=== PATIENT | male | born 1945 | race Caucasian/White ===

== ENCOUNTER 2020-06-30 14:29 | Inpatient (IN) ==
[2020-06-30] MEDS ORDERED: BUDESONIDE/FORMOTEROL 80-4.5 INHALER 6.9 GM INH PRN (15:57)
[2020-06-30] MEDS ORDERED: predniSONE 10 MG TABLET PO PRN (15:57)
[2020-06-30] MEDS: oxyCODONE/ACETAMINOPHEN 5-325 MG TABLET PO PRN ×2 (16:37→23:06)
[2020-06-30 16:48] LABS: Basophils # 0.1 10*3/uL (0.0-0.2); Eosinophils # 0.2 10*3/uL (0.0-0.87); Eosinophils % 2.7 % (0.00-10.9); Hematocrit 29.5 VOL% (42.0-52.0); Hemoglobin 8.9 GM/DL (14.0-18.0); Immature Granulocytes % 0.5 %; Immature Granulocytes Absolute 0.03 #; Lymphocytes # 0.9 10*3/uL (1.4-4.0); Lymphocytes % 15.1 % (21.2-54.2); Mean Corpuscular HGB Conc 30.2 GM/DL (32-36); Mean Platelet Volume 9.5 FL (9.6-12.0); Monocytes % 10.4 % (1.7-12.7); Neutrophils % 70.3 % (38.7-73.9); Platelet Count 187 T/CUMM (130-400); Red Blood Count 3.01 MC/CUMM (3.8-5.5); Red Cell Distribution Width 15.4 % (9.3-17.3)
[2020-06-30 17:09] LABS: Alanine Aminotransferase 87 U/L (16-61); Albumin 2.8 G/DL (3.4-5.0); Alkaline Phosphatase 90 U/L (45-117); Aspartate Amino Transferase 34 U/L (0-37); Bilirubin,Total < 0.39 MG/DL (0.2-1.0); Blood Urea Nitrogen 10 MG/DL (7-18); Calcium 8.6 MG/DL (8.5-10.1); Estimated Glom Filtration Rate 71 ML/MIN; Glucose 89 MG/DL (74-106); Osmolality,Calculated 272.7 MOS/KG (273-304); Total Protein 6.2 G/DL (6.4-8.3)
[2020-06-30 17:25] LABS: PT Patient Result 10.9 SECS (9.8-11.9)
[2020-06-30] MEDS: HYDROmorphone 2 MG/1 ML VIAL IV PRN (20:52)
[2020-06-30] MEDS: ROSUVASTATIN 20 MG TABLET PO SCH (20:52)
[2020-06-30] MEDS: cilostazoL 100 MG TABLET PO SCH (20:52)
[2020-06-30] MEDS: LEFLUNOMIDE 10 MG TABLET PO SCH (20:52)
[2020-06-30] MEDS: METOPROLOL SUCCINATE XL 25 MG TABLET PO SCH (20:52)
[2020-06-30] MEDS: PIPERACILLIN/TAZOBACTAM 3,375 MG in SODIUM CHLORIDE 0.9% 100 ML IV SCH (20:53)
[2020-07-01] MEDS: HYDROmorphone 2 MG/1 ML VIAL IV PRN ×8 (01:05→22:52)
[2020-07-01] MEDS: oxyCODONE/ACETAMINOPHEN 5-325 MG TABLET PO PRN ×3 (04:02→20:05)
[2020-07-01] MEDS: PIPERACILLIN/TAZOBACTAM 3,375 MG in SODIUM CHLORIDE 0.9% 100 ML IV SCH ×3 (05:30→20:06)
[2020-07-01] MEDS: ASPIRIN EC 81 MG TABLET PO SCH (08:14)
[2020-07-01] MEDS: CLOPIDOGREL 75 MG TABLET PO SCH (08:15)
[2020-07-01] MEDS: cilostazoL 100 MG TABLET PO SCH ×2 (08:15→20:05)
[2020-07-01] MEDS: METOPROLOL SUCCINATE XL 25 MG TABLET PO SCH ×2 (08:15→20:05)
[2020-07-01] MEDS ORDERED: fentaNYL 100 MCG/2 ML VIAL ONE ×2 (10:05→10:26)
[2020-07-01] MEDS ORDERED: ePHEDrine 50 MG/ML VIAL ONE (10:22)
[2020-07-01] MEDS ORDERED: SEVOFLURANE 1 UNIT/15 MINUTE INH ONE (10:55)
[2020-07-01] MEDS ORDERED: propofoL 200 MG/20 ML VIAL IV ONE (10:55)
[2020-07-01] MEDS ORDERED: LIDOCAINE 2% 5 ML VIAL ONE (10:55)
[2020-07-01] MEDS ORDERED: KETOROLAC 30 MG/1 ML VIAL ONE (10:55)
[2020-07-01] MEDS ORDERED: PHENYLEPHRINE 10 MG/1 ML VIAL IV ONE (11:00)
[2020-07-01] MEDS ORDERED: BISACODYL 5 MG TABLET PO PRN (11:03)
[2020-07-01] MEDS ORDERED: KETOROLAC 10 MG TABLET PO PRN (11:03)
[2020-07-01] MEDS ORDERED: HYDROmorphone 2 MG/1 ML VIAL IV PRN (11:03)
[2020-07-01] MEDS ORDERED: ONDANSETRON 4 MG/2 ML VIAL IV PRN ×2 (11:03→11:04)
[2020-07-01] MEDS ORDERED: PROMETHAZINE INJ 25 MG in SODIUM CHLORIDE 0.9% 50 ML IV PRN (11:04)
[2020-07-01] MEDS ORDERED: diphenhydrAMINE 50 MG/1 ML VIAL IV PRN (11:04)
[2020-07-01] MEDS: MEPERIDINE 25 MG/1 ML VIAL IV PRN ×2 (11:10→11:40)
[2020-07-01] MEDS ORDERED: PROMETHAZINE 25 MG/1 ML VIAL ONE (11:31)
[2020-07-01] MEDS ORDERED: LACTATED RINGERS 1,000 ML IV SCH (12:00)
[2020-07-01] MEDS: KETOROLAC 10 MG TABLET PO SCH ×2 (16:46→22:48)
[2020-07-01] MEDS: ROSUVASTATIN 20 MG TABLET PO SCH (20:04)
[2020-07-01] MEDS: LEFLUNOMIDE 10 MG TABLET PO SCH (20:05)
[2020-07-02] MEDS: oxyCODONE/ACETAMINOPHEN 5-325 MG TABLET PO PRN ×5 (01:53→20:52)
[2020-07-02] MEDS: HYDROmorphone 2 MG/1 ML VIAL IV PRN (03:34)
[2020-07-02] MEDS: KETOROLAC 10 MG TABLET PO SCH ×4 (05:14→22:46)
[2020-07-02] MEDS: ENOXAPARIN 40 MG/0.4 ML SYRINGE SUBCUT SCH (05:14)
[2020-07-02] MEDS: PIPERACILLIN/TAZOBACTAM 3,375 MG in SODIUM CHLORIDE 0.9% 100 ML IV SCH ×3 (05:14→20:52)
[2020-07-02 05:36] LABS: Basophils # 0.1 10*3/uL (0.0-0.2); Eosinophils # 0.4 10*3/uL (0.0-0.87); Eosinophils % 4.7 % (0.00-10.9); Hematocrit 27.9 VOL% (42.0-52.0); Hemoglobin 8.5 GM/DL (14.0-18.0); Immature Granulocytes % 0.4 %; Immature Granulocytes Absolute 0.03 #; Lymphocytes # 1.4 10*3/uL (1.4-4.0); Lymphocytes % 17.5 % (21.2-54.2); Mean Corpuscular HGB Conc 30.5 GM/DL (32-36); Mean Corpuscular Volume 97.6 FL (87-102); Mean Platelet Volume 9.2 FL (9.6-12.0); Monocytes % 12.8 % (1.7-12.7); Neutrophils % 63.6 % (38.7-73.9); Platelet Count 196 T/CUMM (130-400); Red Blood Count 2.86 MC/CUMM (3.8-5.5); Red Cell Distribution Width 15.5 % (9.3-17.3); White Blood Count 7.9 T/CUMM (4-12)
[2020-07-02 05:55] LABS: Calcium 8.1 MG/DL (8.5-10.1)
[2020-07-02] MEDS: METOPROLOL SUCCINATE XL 25 MG TABLET PO SCH ×2 (10:13→20:52)
[2020-07-02] MEDS: cilostazoL 100 MG TABLET PO SCH ×2 (10:13→20:52)
[2020-07-02] MEDS: ASPIRIN EC 81 MG TABLET PO SCH (10:14)
[2020-07-02] MEDS: CLOPIDOGREL 75 MG TABLET PO SCH (10:14)
[2020-07-02] MEDS: LEFLUNOMIDE 10 MG TABLET PO SCH (20:52)
[2020-07-02] MEDS: ROSUVASTATIN 20 MG TABLET PO SCH (20:52)
[2020-07-03] MEDS: KETOROLAC 10 MG TABLET PO SCH ×2 (05:08→11:26)
[2020-07-03] MEDS: ENOXAPARIN 40 MG/0.4 ML SYRINGE SUBCUT SCH (05:08)
[2020-07-03] MEDS: PIPERACILLIN/TAZOBACTAM 3,375 MG in SODIUM CHLORIDE 0.9% 100 ML IV SCH (05:09)
[2020-07-03] MEDS: oxyCODONE/ACETAMINOPHEN 5-325 MG TABLET PO PRN ×2 (06:46→11:26)
[2020-07-03] MEDS: cilostazoL 100 MG TABLET PO SCH (09:56)
[2020-07-03] MEDS: METOPROLOL SUCCINATE XL 25 MG TABLET PO SCH (09:56)
[2020-07-03] MEDS: ASPIRIN EC 81 MG TABLET PO SCH (09:56)
[2020-07-03] MEDS: CLOPIDOGREL 75 MG TABLET PO SCH (09:57)
[2020-07-03 11:26] VITALS: BP 140/60
== END 2020-07-03 13:47 | disposition home health service (06) | DRG 241 ==
LOC: N.3E 15:13
PROVIDERS: ADMIT Surgery; ATTEND Surgery

== ENCOUNTER 2020-07-04 07:28 | Inpatient (IN) ==
[2020-07-04 08:16] LABS: Basophils # 0.1 10*3/uL (0.0-0.2); Basophils % 1.1 % (0.0-0.8); Eosinophils # 0.2 10*3/uL (0.0-0.87); Eosinophils % 2.2 % (0.00-10.9); Hematocrit 30.2 VOL% (42.0-52.0); Hemoglobin 9.4 GM/DL (14.0-18.0); Immature Granulocytes % 0.6 %; Immature Granulocytes Absolute 0.04 #; Lymphocytes # 0.9 10*3/uL (1.4-4.0); Lymphocytes % 12.2 % (21.2-54.2); Mean Corpuscular HGB Conc 31.1 GM/DL (32-36); Mean Corpuscular Volume 95.9 FL (87-102); Mean Platelet Volume 9.3 FL (9.6-12.0); Monocytes % 10.9 % (1.7-12.7); Platelet Count 189 T/CUMM (130-400); Red Blood Count 3.15 MC/CUMM (3.8-5.5); Red Cell Distribution Width 15.2 % (9.3-17.3); White Blood Count 7.2 T/CUMM (4-12)
[2020-07-04 08:57] LABS: Alanine Aminotransferase 43 U/L (16-61); Albumin 2.6 G/DL (3.4-5.0); Alkaline Phosphatase 80 U/L (45-117); Aspartate Amino Transferase 36 U/L (0-37); Blood Urea Nitrogen 7 MG/DL (7-18); Calcium 8.2 MG/DL (8.5-10.1); Estimated Glom Filtration Rate 91 ML/MIN; Glucose 67 MG/DL (74-106); Osmolality,Calculated 268.8 MOS/KG (273-304); Total Protein 6.5 G/DL (6.4-8.3); Troponin I 0.167 NG/ML (0.00-0.045)
[2020-07-04 09:46] LABS: Bacteria,Urine Occasional /HPF (Few); Bilirubin,Urine Negative (Negative); Blood, Urine Moderate mg/dL (Negative); Glucose,Urine (UA) Negative (Negative); Ketones,Urine 80 mg/dL (Negative); Mucus,Urine Occasional /LPF (Occasional); Nitrite,Urine Negative (Negative); Protein,Urine Negative; RBC,Urine 23 /HPF (0-4); Squamous Epithelial Cell,Urine Occasional /HPF (0-10); Urine Appearance CLEAR (Clear); Urine Color Yellow (Yellow); Urine Specific Gravity 1.013 (1.001-1.035); Urine Urobilinogen < 2.0 EU/DL (0.2-1.0); WBC,Urine <1 /HPF (0-6)
[2020-07-04] MEDS ORDERED: LEVOFLOXACIN INJ 750 MG in PREMIX 1 EACH IV STA (10:19)
[2020-07-04] MEDS ORDERED: FUROSEMIDE 40 MG/4 ML VIAL IV STA (10:19)
[2020-07-04] MEDS ORDERED: GLUCAGON 1 MG VIAL IM PRN (11:14)
[2020-07-04] MEDS ORDERED: ACETAMINOPHEN 325 MG TABLET PO PRN (11:14)
[2020-07-04] MEDS ORDERED: BISACODYL 5 MG TABLET PO PRN (11:14)
[2020-07-04] MEDS ORDERED: MORPHINE 4 MG/1 ML VIAL IV PRN (11:14)
[2020-07-04] MEDS ORDERED: DEXTROSE 50% 25 GM/50 ML VIAL IV PRN (11:14)
[2020-07-04] MEDS ORDERED: ALBUTEROL/IPRATROPIUM 3 ML NEB RESP TX PRN (11:14)
[2020-07-04] MEDS ORDERED: ONDANSETRON 4 MG/2 ML VIAL IV PRN (11:14)
[2020-07-04] MEDS ORDERED: BUDESONIDE/FORMOTEROL 80-4.5 INHALER 6.9 GM INH PRN (11:18)
[2020-07-04] MEDS: ENOXAPARIN 40 MG/0.4 ML SYRINGE SUBCUT SCH (12:06)
[2020-07-04] MEDS: CIPROFLOXACIN 500 MG TABLET PO SCH (16:17)
[2020-07-04] MEDS: cilostazoL 100 MG TABLET PO SCH (20:39)
[2020-07-04] MEDS: METOPROLOL SUCCINATE XL 25 MG TABLET PO SCH (20:39)
[2020-07-04] MEDS: LEFLUNOMIDE 10 MG TABLET PO SCH (20:39)
[2020-07-04] MEDS: ASPIRIN EC 81 MG TABLET PO SCH (20:40)
[2020-07-04] MEDS: ROSUVASTATIN 20 MG TABLET PO SCH (20:40)
[2020-07-04] MEDS: CLOPIDOGREL 75 MG TABLET PO SCH (20:58)
[2020-07-05 07:32] LABS: Basophils % 0.6 % (0.0-0.8); Eosinophils # 0.1 10*3/uL (0.0-0.87); Eosinophils % 1.6 % (0.00-10.9); Hematocrit 26.7 VOL% (42.0-52.0); Hemoglobin 8.6 GM/DL (14.0-18.0); Immature Granulocytes % 0.5 %; Immature Granulocytes Absolute 0.03 #; Lymphocytes # 0.9 10*3/uL (1.4-4.0); Lymphocytes % 14.3 % (21.2-54.2); Mean Corpuscular HGB Conc 32.2 GM/DL (32-36); Mean Corpuscular Volume 92.1 FL (87-102); Monocytes % 16.1 % (1.7-12.7); Neutrophils % 66.9 % (38.7-73.9); Platelet Count 194 T/CUMM (130-400); Red Cell Distribution Width 15.1 % (9.3-17.3); White Blood Count 6.3 T/CUMM (4-12)
[2020-07-05 08:10] LABS: Osmolality,Calculated 269.8 MOS/KG (273-304)
[2020-07-05 08:13] LABS: Band Neutrophils 3 % (0-10); Eosinophils 2 % (0-10); Hypochromasia 2+; Lymphocytes 15 % (20-55); Platelet Estimate Normal; Segmented Neutrophils 64 % (50-85); Total Cells Counted 100
[2020-07-05] MEDS: CIPROFLOXACIN 500 MG TABLET PO SCH ×2 (08:46→16:44)
[2020-07-05] MEDS: cilostazoL 100 MG TABLET PO SCH ×2 (08:46→20:51)
[2020-07-05] MEDS: METOPROLOL SUCCINATE XL 25 MG TABLET PO SCH ×2 (08:46→20:51)
[2020-07-05] MEDS: FUROSEMIDE 40 MG/4 ML VIAL IV SCH (08:46)
[2020-07-05] MEDS: POTASSIUM CHLORIDE 20 MEQ TABLET PO PRN ×3 (08:47→12:53)
[2020-07-05] MEDS: CHOLECALCIFEROL 1,000 UNIT TABLET PO SCH (10:47)
[2020-07-05] MEDS: ENOXAPARIN 40 MG/0.4 ML SYRINGE SUBCUT SCH ×2 (10:48→11:54)
[2020-07-05] MEDS: POTASSIUM CHLORIDE 20 MEQ/15 ML UDCUP PO PRN ×2 (16:44→18:38)
[2020-07-05] MEDS: CLOPIDOGREL 75 MG TABLET PO SCH (20:51)
[2020-07-05] MEDS: ROSUVASTATIN 20 MG TABLET PO SCH (20:51)
[2020-07-05] MEDS: ASPIRIN EC 81 MG TABLET PO SCH (20:51)
[2020-07-05] MEDS: LEFLUNOMIDE 10 MG TABLET PO SCH (20:51)
[2020-07-06 00:43] LABS: Basophils # 0.1 10*3/uL (0.0-0.2); Basophils % 1.1 % (0.0-0.8); Eosinophils # 0.1 10*3/uL (0.0-0.87); Hematocrit 28.2 VOL% (42.0-52.0); Hemoglobin 8.6 GM/DL (14.0-18.0); Immature Granulocytes % 0.5 %; Immature Granulocytes Absolute 0.03 #; Lymphocytes # 1.3 10*3/uL (1.4-4.0); Lymphocytes % 20.6 % (21.2-54.2); Mean Corpuscular HGB Conc 30.5 GM/DL (32-36); Mean Corpuscular Volume 94.6 FL (87-102); Monocytes % 17.8 % (1.7-12.7); Platelet Count 219 T/CUMM (130-400); Red Blood Count 2.98 MC/CUMM (3.8-5.5); Red Cell Distribution Width 15.3 % (9.3-17.3); White Blood Count 6.4 T/CUMM (4-12)
[2020-07-06 05:39] LABS: Eosinophils 1 % (0-10); Hypochromasia 2+; Lymphocytes 26 % (20-55); Platelet Estimate Normal; Segmented Neutrophils 61 % (50-85); Total Cells Counted 100
[2020-07-06] MEDS ORDERED: MAGNESIUM SULF RIDER 4 GM in PREMIX 1 EACH IV PRN (07:13)
[2020-07-06] MEDS ORDERED: MAGNESIUM SULF RIDER 2 GM in PREMIX 1 EACH IV PRN (07:13)
[2020-07-06] MEDS: METOPROLOL SUCCINATE XL 25 MG TABLET PO SCH ×2 (08:26→20:08)
[2020-07-06] MEDS: CHOLECALCIFEROL 1,000 UNIT TABLET PO SCH (08:26)
[2020-07-06] MEDS: POTASSIUM CHLORIDE 20 MEQ/15 ML UDCUP PO PRN ×2 (08:26→11:58)
[2020-07-06] MEDS: cilostazoL 100 MG TABLET PO SCH ×2 (08:26→20:08)
[2020-07-06] MEDS: CIPROFLOXACIN 500 MG TABLET PO SCH ×2 (08:26→17:45)
[2020-07-06] MEDS: FUROSEMIDE 40 MG/4 ML VIAL IV SCH (08:30)
[2020-07-06] MEDS: LOSARTAN 25 MG TABLET PO SCH (11:58)
[2020-07-06] MEDS: ENOXAPARIN 40 MG/0.4 ML SYRINGE SUBCUT SCH (11:58)
[2020-07-06] MEDS: ROSUVASTATIN 20 MG TABLET PO SCH (20:08)
[2020-07-06] MEDS: LEFLUNOMIDE 10 MG TABLET PO SCH (20:08)
[2020-07-06] MEDS: CLOPIDOGREL 75 MG TABLET PO SCH (20:08)
[2020-07-06] MEDS: ASPIRIN EC 81 MG TABLET PO SCH (20:08)
[2020-07-07 05:48] LABS: Basophils # 0.1 10*3/uL (0.0-0.2); Basophils % 1.3 % (0.0-0.8); Eosinophils # 0.2 10*3/uL (0.0-0.87); Eosinophils % 3.3 % (0.00-10.9); Hematocrit 28.8 VOL% (42.0-52.0); Hemoglobin 9.2 GM/DL (14.0-18.0); Immature Granulocytes % 0.5 %; Immature Granulocytes Absolute 0.03 #; Lymphocytes # 1.4 10*3/uL (1.4-4.0); Lymphocytes % 21.5 % (21.2-54.2); Mean Corpuscular HGB Conc 31.9 GM/DL (32-36); Mean Corpuscular Volume 92.6 FL (87-102); Mean Platelet Volume 8.9 FL (9.6-12.0); Monocytes % 17.7 % (1.7-12.7); Neutrophils % 55.7 % (38.7-73.9); Platelet Count 221 T/CUMM (130-400); Red Blood Count 3.11 MC/CUMM (3.8-5.5); Red Cell Distribution Width 15.3 % (9.3-17.3); White Blood Count 6.4 T/CUMM (4-12)
[2020-07-07 06:03] LABS: Calcium 8.5 MG/DL (8.5-10.1); Osmolality,Calculated 271.8 MOS/KG (273-304)
[2020-07-07 06:14] LABS: Eosinophils 2 % (0-10); Lymphocytes 21 % (20-55); Myelocytes 2 %; Segmented Neutrophils 58 % (50-85); Total Cells Counted 100
[2020-07-07 06:15] LABS: Hypochromasia 2+; Microcytosis Slight; Polychromasia Slight
[2020-07-07 06:16] LABS: Platelet Estimate Normal
[2020-07-07] MEDS: FUROSEMIDE 40 MG TABLET PO SCH (09:05)
[2020-07-07] MEDS: METOPROLOL SUCCINATE XL 25 MG TABLET PO SCH ×2 (09:05→20:41)
[2020-07-07] MEDS: CHOLECALCIFEROL 1,000 UNIT TABLET PO SCH (09:05)
[2020-07-07] MEDS: CIPROFLOXACIN 500 MG TABLET PO SCH ×2 (09:05→16:10)
[2020-07-07] MEDS: LOSARTAN 25 MG TABLET PO SCH (09:05)
[2020-07-07] MEDS ORDERED: MAGNESIUM SULF RIDER 2 GM in PREMIX 1 EACH IV PRN (13:22)
[2020-07-07] MEDS: ENOXAPARIN 40 MG/0.4 ML SYRINGE SUBCUT SCH (15:25)
[2020-07-07] MEDS: LEFLUNOMIDE 10 MG TABLET PO SCH (20:41)
[2020-07-07] MEDS: ASPIRIN EC 81 MG TABLET PO SCH (20:41)
[2020-07-07] MEDS: CLOPIDOGREL 75 MG TABLET PO SCH (20:41)
[2020-07-07] MEDS: ROSUVASTATIN 20 MG TABLET PO SCH (20:41)
[2020-07-08 06:11] LABS: Basophils # 0.1 10*3/uL (0.0-0.2); Basophils % 1.2 % (0.0-0.8); Eosinophils # 0.3 10*3/uL (0.0-0.87); Eosinophils % 4.4 % (0.00-10.9); Hematocrit 28.5 VOL% (42.0-52.0); Hemoglobin 9.2 GM/DL (14.0-18.0); Immature Granulocytes % 0.5 %; Immature Granulocytes Absolute 0.03 #; Lymphocytes # 1.3 10*3/uL (1.4-4.0); Lymphocytes % 22.2 % (21.2-54.2); Mean Corpuscular HGB Conc 32.3 GM/DL (32-36); Mean Corpuscular Volume 90.8 FL (87-102); Mean Platelet Volume 8.9 FL (9.6-12.0); Monocytes % 16.4 % (1.7-12.7); Neutrophils % 55.3 % (38.7-73.9); Platelet Count 225 T/CUMM (130-400); Red Blood Count 3.14 MC/CUMM (3.8-5.5); Red Cell Distribution Width 15.3 % (9.3-17.3); White Blood Count 5.9 T/CUMM (4-12)
[2020-07-08 06:40] LABS: Calcium 8.4 MG/DL (8.5-10.1)
[2020-07-08 06:43] LABS: Atypical Lymphocytes Few; Band Neutrophils 2 % (0-10); Eosinophils 3 % (0-10); Hypochromasia 1+; Lymphocytes 23 % (20-55); Segmented Neutrophils 59 % (50-85); Total Cells Counted 100
[2020-07-08 06:44] LABS: Microcytosis 1+; Platelet Estimate Normal
[2020-07-08] MEDS: CIPROFLOXACIN 500 MG TABLET PO SCH ×2 (09:21→17:56)
[2020-07-08] MEDS: LOSARTAN 25 MG TABLET PO SCH (09:21)
[2020-07-08] MEDS: CHOLECALCIFEROL 1,000 UNIT TABLET PO SCH (09:21)
[2020-07-08] MEDS: METOPROLOL SUCCINATE XL 25 MG TABLET PO SCH ×2 (09:21→22:13)
[2020-07-08] MEDS: POTASSIUM CHLORIDE RIDER 10 MEQ in PREMIX 1 EACH IV PRN ×2 (09:23→11:00)
[2020-07-08] MEDS ORDERED: FAMOTIDINE INJ 40 MG in SODIUM CHLORIDE 0.9% 100 ML IV SCH (11:30)
[2020-07-08] MEDS ORDERED: methylPREDNISolone SOD SUC 125 MG/2 ML VIAL IV ONE (11:30)
[2020-07-08] MEDS ORDERED: diphenhydrAMINE 50 MG/1 ML VIAL IV ONE (11:30)
[2020-07-08] MEDS ORDERED: diphenhydrAMINE CAP 25 MG CAPSULE PO ONE (12:00)
[2020-07-08] MEDS ORDERED: DIAZEPAM 5 MG TABLET PO ONE (12:00)
[2020-07-08] MEDS: FAMOTIDINE 20 MG/2 ML VIAL IV SCH ×2 (12:52→23:09)
[2020-07-08] MEDS: ENOXAPARIN 40 MG/0.4 ML SYRINGE SUBCUT SCH (13:02)
[2020-07-08] MEDS ORDERED: LIDOCAINE 1% 20 ML VIAL ONE (13:13)
[2020-07-08] MEDS ORDERED: HYDROmorphone 2 MG/1 ML VIAL ONE (13:15)
[2020-07-08] MEDS ORDERED: MIDAZOLAM 2 MG/2 ML VIAL ONE ×3 (13:16→15:54)
[2020-07-08] MEDS ORDERED: VERAPAMIL 5 MG/2 ML VIAL ONE (13:17)
[2020-07-08] MEDS ORDERED: NITROGLYCERIN DRIP 50 MG/250 ML BOTTLE IV ONE (13:17)
[2020-07-08] MEDS ORDERED: METOPROLOL TARTRATE 5 MG/5 ML VIAL IV ONE (13:34)
[2020-07-08] MEDS ORDERED: ENOXAPARIN 60 MG/0.6 ML SYRINGE ONE (13:46)
[2020-07-08] MEDS ORDERED: MIDAZOLAM 2 MG/2 ML VIAL IV ONE (15:52)
[2020-07-08] MEDS: FUROSEMIDE 40 MG TABLET PO SCH (17:03)
[2020-07-08 17:17] LABS: Troponin I 0.083 NG/ML (0.00-0.045)
[2020-07-08] MEDS: methylPREDNISolone SOD SUC 40 MG/1 ML VIAL IV SCH (17:56)
[2020-07-08] MEDS: LEFLUNOMIDE 10 MG TABLET PO SCH (22:13)
[2020-07-08] MEDS: ASPIRIN EC 81 MG TABLET PO SCH (22:13)
[2020-07-08] MEDS: CLOPIDOGREL 75 MG TABLET PO SCH (22:13)
[2020-07-08] MEDS: ROSUVASTATIN 20 MG TABLET PO SCH (22:13)
[2020-07-09] MEDS: methylPREDNISolone SOD SUC 40 MG/1 ML VIAL IV SCH ×2 (00:43→06:45)
[2020-07-09 06:31] LABS: Basophils % 0.4 % (0.0-0.8); Hematocrit 28.5 VOL% (42.0-52.0); Hemoglobin 9.1 GM/DL (14.0-18.0); Immature Granulocytes % 0.6 %; Immature Granulocytes Absolute 0.03 #; Lymphocytes # 0.5 10*3/uL (1.4-4.0); Lymphocytes % 9.1 % (21.2-54.2); Mean Corpuscular HGB Conc 31.9 GM/DL (32-36); Mean Corpuscular Volume 92.2 FL (87-102); Neutrophils % 86.9 % (38.7-73.9); Platelet Count 215 T/CUMM (130-400); Red Blood Count 3.09 MC/CUMM (3.8-5.5); Red Cell Distribution Width 15.3 % (9.3-17.3); White Blood Count 5.4 T/CUMM (4-12)
[2020-07-09 06:57] LABS: CKMB % 7.1 %; Calcium 8.2 MG/DL (8.5-10.1); Osmolality,Calculated 276.7 MOS/KG (273-304)
[2020-07-09 06:59] LABS: Troponin I 1.05 NG/ML (0.00-0.045)
[2020-07-09] MEDS: METOPROLOL SUCCINATE XL 25 MG TABLET PO SCH (09:10)
[2020-07-09] MEDS: FUROSEMIDE 40 MG TABLET PO SCH (09:10)
[2020-07-09] MEDS: LOSARTAN 25 MG TABLET PO SCH (09:10)
[2020-07-09] MEDS: CIPROFLOXACIN 500 MG TABLET PO SCH (09:10)
[2020-07-09] MEDS: CHOLECALCIFEROL 1,000 UNIT TABLET PO SCH (09:11)
[2020-07-09] MEDS ORDERED: METOPROLOL SUCCINATE XL 50 MG TABLET PO SCH (10:05)
[2020-07-09] MEDS: FAMOTIDINE 20 MG/2 ML VIAL IV SCH (10:30)
[2020-07-09 12:25] VITALS: BP 102/59
== END 2020-07-09 12:32 | disposition home health service (06) | DRG 246 ==
LOC: N.ED 07:28 → N.EDINP 07:28 → N.3E 13:27 → SUATTDRO 07-06 10:21 → N.TELES 07-08 17:16
PROVIDERS: ADMIT Internal Medicine; ATTEND Internal Medicine

== ENCOUNTER 2020-09-15 05:58 | Inpatient (IN) ==
[2020-09-15] MEDS ORDERED: DIAZEPAM 5 MG TABLET PO ONE (06:00)
[2020-09-15] MEDS ORDERED: MAGNESIUM SULF RIDER 2 GM in PREMIX 1 EACH IV PRN ×2 (06:00→12:52)
[2020-09-15] MEDS ORDERED: ASPIRIN 325 MG TABLET PO ONE (06:00)
[2020-09-15] MEDS ORDERED: diphenhydrAMINE CAP 50 MG CAPSULE PO ONE (06:00)
[2020-09-15] MEDS ORDERED: POTASSIUM CHLORIDE RIDER 10 MEQ in PREMIX 1 EACH IV PRN (06:00)
[2020-09-15 08:10] LABS: Basophils % 0.2 % (0.0-0.8); Hematocrit 28.9 VOL% (42.0-52.0); Hemoglobin 8.9 GM/DL (14.0-18.0); Immature Granulocytes % 0.4 %; Immature Granulocytes Absolute 0.04 #; Lymphocytes # 0.7 10*3/uL (1.4-4.0); Lymphocytes % 6.8 % (21.2-54.2); Mean Corpuscular HGB Conc 30.8 GM/DL (32-36); Mean Corpuscular Volume 90.9 FL (87-102); Mean Platelet Volume 10.4 FL (9.6-12.0); Monocytes % 4.7 % (1.7-12.7); Neutrophils % 87.9 % (38.7-73.9); Platelet Count 224 T/CUMM (130-400); Red Blood Count 3.18 MC/CUMM (3.8-5.5); Red Cell Distribution Width 15.2 % (9.3-17.3)
[2020-09-15 08:31] LABS: Albumin 2.9 G/DL (3.4-5.0); Calcium 8.9 MG/DL (8.5-10.1); Osmolality,Calculated 276.7 MOS/KG (273-304); Potassium 4.1 MMOL/L (3.5-5.1); Total Protein 6.9 G/DL (5.0-7.5)
[2020-09-15] MEDS ORDERED: DIAZEPAM 5 MG TABLET ONE (09:43)
[2020-09-15] MEDS ORDERED: diphenhydrAMINE CAP 50 MG CAPSULE ONE (09:43)
[2020-09-15] MEDS ORDERED: ASPIRIN 325 MG TABLET ONE (09:43)
[2020-09-15] MEDS: SODIUM CHLORIDE 0.9% 1,000 ML IV SCH ×2 (09:50→22:12)
[2020-09-15] MEDS ORDERED: HEPARIN 5,000 UNIT/1 ML VIAL ONE (12:27)
[2020-09-15] MEDS ORDERED: LIDOCAINE 1% 20 ML VIAL ONE (12:27)
[2020-09-15] MEDS ORDERED: hydrALAZINE 20 MG/1 ML VIAL IV PRN (12:52)
[2020-09-15] MEDS ORDERED: SIMETHICONE CHEW 125 MG TABLET PO PRN (12:52)
[2020-09-15] MEDS ORDERED: LACTULOSE 20 GM/30 ML UDCUP PO PRN (12:52)
[2020-09-15] MEDS ORDERED: ACETAMINOPHEN 325 MG TABLET PO PRN (12:52)
[2020-09-15] MEDS ORDERED: MAGNESIUM SULF RIDER 4 GM in PREMIX 1 EACH IV PRN (12:52)
[2020-09-15] MEDS ORDERED: BISACODYL 5 MG TABLET PO PRN (12:52)
[2020-09-15] MEDS ORDERED: ALUMINUM/MAGNES/SIMETH MAX STR 30 ML UDCUP PO PRN (12:52)
[2020-09-15] MEDS ORDERED: POTASSIUM CHLORIDE 20 MEQ TABLET PO PRN (12:52)
[2020-09-15] MEDS ORDERED: guaiFENesin/DM ER 600-30 MG TABLET PO PRN (12:52)
[2020-09-15] MEDS ORDERED: ONDANSETRON 4 MG/2 ML VIAL IV PRN (12:52)
[2020-09-15] MEDS ORDERED: diphenhydrAMINE CAP 25 MG CAPSULE PO PRN (12:52)
[2020-09-15] MEDS ORDERED: CALCIUM CARBONATE CHEW 500 MG TABLET PO PRN (12:52)
[2020-09-15] MEDS ORDERED: predniSONE 10 MG TABLET PO PRN (12:58)
[2020-09-15] MEDS ORDERED: BUDESONIDE/FORMOTEROL 80-4.5 INHALER 6.9 GM INH PRN (12:58)
[2020-09-15] MEDS ORDERED: CLINDAMYCIN INJ 600 MG in PREMIX 1 EACH IV SCH (13:00)
[2020-09-15] MEDS ORDERED: diphenhydrAMINE CAP 50 MG CAPSULE PO SCH (13:00)
[2020-09-15] MEDS ORDERED: predniSONE 20 MG TABLET PO SCH (13:00)
[2020-09-15] MEDS: MORPHINE 4 MG/1 ML VIAL IV PRN (14:41)
[2020-09-15] MEDS: VANCOMYCIN INJ 2,250 MG in SODIUM CHLORIDE 0.9% 500 ML IV SCH (17:57)
[2020-09-15] MEDS ORDERED: MORPHINE 4 MG/1 ML VIAL IV ONE (21:10)
[2020-09-15] MEDS: TEMAZEPAM 7.5 MG CAPSULE PO SCH (21:33)
[2020-09-15] MEDS: ENOXAPARIN 40 MG/0.4 ML SYRINGE SUBCUT SCH (21:35)
[2020-09-15] MEDS: CEFEPIME 1,000 MG in SODIUM CHLORIDE 0.9% 100 ML IV SCH (21:35)
[2020-09-16] MEDS: SODIUM CHLORIDE 0.9% 1,000 ML IV SCH ×4 (02:29→22:14)
[2020-09-16] MEDS: MORPHINE 4 MG/1 ML VIAL IV PRN ×3 (02:46→22:28)
[2020-09-16] MEDS: CEFEPIME 1,000 MG in SODIUM CHLORIDE 0.9% 100 ML IV SCH ×4 (02:52→21:14)
[2020-09-16] MEDS: PANTOPRAZOLE 40 MG TABLET PO SCH (05:52)
[2020-09-16 06:22] LABS: Basophils # 0.1 10*3/uL (0.0-0.2); Basophils % 0.6 % (0.0-0.8); Eosinophils % 0.1 % (0.00-10.9); Hemoglobin 8.8 GM/DL (14.0-18.0); Immature Granulocytes % 0.7 %; Immature Granulocytes Absolute 0.09 #; Lymphocytes # 1.6 10*3/uL (1.4-4.0); Lymphocytes % 12.6 % (21.2-54.2); Mean Corpuscular HGB Conc 30.3 GM/DL (32-36); Mean Corpuscular Volume 92.1 FL (87-102); Monocytes % 9.4 % (1.7-12.7); Neutrophils % 76.6 % (38.7-73.9); Platelet Count 258 T/CUMM (130-400); Red Blood Count 3.15 MC/CUMM (3.8-5.5); Red Cell Distribution Width 15.4 % (9.3-17.3); White Blood Count 12.4 T/CUMM (4-12)
[2020-09-16 06:45] LABS: Calcium 8.6 MG/DL (8.5-10.1); Osmolality,Calculated 288.8 MOS/KG (273-304); Potassium 4.1 MMOL/L (3.5-5.1)
[2020-09-16] MEDS: VANCOMYCIN INJ 2,250 MG in SODIUM CHLORIDE 0.9% 500 ML IV SCH ×2 (07:00→18:13)
[2020-09-16] MEDS ORDERED: TORSEMIDE 20 MG TABLET PO SCH (09:00)
[2020-09-16] MEDS: ASPIRIN EC 81 MG TABLET PO SCH (09:43)
[2020-09-16] MEDS: BISOPROLOL 5 MG TABLET PO SCH (09:43)
[2020-09-16] MEDS: CLOPIDOGREL 75 MG TABLET PO SCH (09:43)
[2020-09-16] MEDS: LEFLUNOMIDE 10 MG TABLET PO SCH (09:43)
[2020-09-16] MEDS: POTASSIUM CHLORIDE 20 MEQ TABLET PO SCH (09:43)
[2020-09-16] MEDS: SODIUM HYPOCHLORITE 0.25% IRRIG 473 ML BOTTLE TOP SCH ×2 (11:00→21:14)
[2020-09-16] MEDS: ACETIC ACID 0.25% IRRIGATION 1,000 ML BOTTLE IRRIG SCH ×2 (13:07→21:14)
[2020-09-16] MEDS ORDERED: LIDOCAINE 1% 20 ML VIAL ONE (13:47)
[2020-09-16] MEDS ORDERED: MIDAZOLAM 2 MG/2 ML VIAL ONE (13:47)
[2020-09-16] MEDS ORDERED: HYDROmorphone 2 MG/1 ML VIAL ONE (13:48)
[2020-09-16] MEDS ORDERED: HEPARIN 5,000 UNIT/1 ML VIAL ONE (14:36)
[2020-09-16] MEDS ORDERED: NITROGLYCERIN DRIP 50 MG/250 ML BOTTLE IV ONE (14:44)
[2020-09-16] MEDS ORDERED: VERAPAMIL 5 MG/2 ML VIAL ONE (14:45)
[2020-09-16] MEDS ORDERED: ZALEPLON 5 MG CAPSULE PO PRN (15:40)
[2020-09-16] MEDS ORDERED: NITROGLYCERIN SL 0.4 MG TABLET SL PRN (15:40)
[2020-09-16] MEDS ORDERED: LABETALOL 20 MG/4 ML SYRINGE IV ONE (15:41)
[2020-09-16] MEDS ORDERED: CLOPIDOGREL 300 MG TABLET ONE (15:41)
[2020-09-16] MEDS: ENOXAPARIN 40 MG/0.4 ML SYRINGE SUBCUT SCH (21:14)
[2020-09-16] MEDS: TEMAZEPAM 7.5 MG CAPSULE PO SCH (21:15)
[2020-09-17] MEDS: CEFEPIME 1,000 MG in SODIUM CHLORIDE 0.9% 100 ML IV SCH ×4 (03:27→20:33)
[2020-09-17] MEDS: VANCOMYCIN INJ 2,250 MG in SODIUM CHLORIDE 0.9% 500 ML IV SCH (05:39)
[2020-09-17] MEDS: PANTOPRAZOLE 40 MG TABLET PO SCH (05:39)
[2020-09-17 06:02] LABS: Basophils # 0.1 10*3/uL (0.0-0.2); Basophils % 0.8 % (0.0-0.8); Eosinophils % 0.5 % (0.00-10.9); Hematocrit 26.9 VOL% (42.0-52.0); Hemoglobin 8.3 GM/DL (14.0-18.0); Immature Granulocytes % 0.8 %; Immature Granulocytes Absolute 0.07 #; Lymphocytes % 11.5 % (21.2-54.2); Mean Corpuscular HGB Conc 30.9 GM/DL (32-36); Mean Corpuscular Volume 91.8 FL (87-102); Mean Platelet Volume 9.7 FL (9.6-12.0); Monocytes % 11.3 % (1.7-12.7); Neutrophils % 75.1 % (38.7-73.9); Platelet Count 175 T/CUMM (130-400); Red Blood Count 2.93 MC/CUMM (3.8-5.5); Red Cell Distribution Width 15.5 % (9.3-17.3); White Blood Count 8.8 T/CUMM (4-12)
[2020-09-17 06:31] LABS: Calcium 8.1 MG/DL (8.5-10.1); Potassium 4.3 MMOL/L (3.5-5.1)
[2020-09-17] MEDS: BISOPROLOL 5 MG TABLET PO SCH (08:18)
[2020-09-17] MEDS: POTASSIUM CHLORIDE 20 MEQ TABLET PO SCH (08:19)
[2020-09-17] MEDS: ACETIC ACID 0.25% IRRIGATION 1,000 ML BOTTLE IRRIG SCH ×2 (08:19→22:31)
[2020-09-17] MEDS: ASPIRIN EC 81 MG TABLET PO SCH (08:19)
[2020-09-17] MEDS: CLOPIDOGREL 75 MG TABLET PO SCH (08:19)
[2020-09-17] MEDS: LEFLUNOMIDE 10 MG TABLET PO SCH (08:19)
[2020-09-17] MEDS: SODIUM HYPOCHLORITE 0.25% IRRIG 473 ML BOTTLE TOP SCH ×2 (09:00→20:34)
[2020-09-17] MEDS ORDERED: CIPROFLOXACIN 500 MG TABLET PO SCH (09:30)
[2020-09-17] MEDS: MORPHINE 4 MG/1 ML VIAL IV PRN (09:51)
[2020-09-17] MEDS: SODIUM CHLORIDE 0.9% 1,000 ML IV SCH (13:16)
[2020-09-17] MEDS: DOXYCYCLINE HYCLATE 100 MG CAPSULE PO SCH ×2 (13:17→20:33)
[2020-09-17] MEDS: ENOXAPARIN 40 MG/0.4 ML SYRINGE SUBCUT SCH (20:33)
[2020-09-17] MEDS: TEMAZEPAM 7.5 MG CAPSULE PO SCH (20:33)
[2020-09-17] MEDS ORDERED: ROSUVASTATIN 20 MG TABLET PO SCH (21:00)
[2020-09-17] MEDS ORDERED: DOXYCYCLINE HYCLATE 100 MG CAPSULE PO SCH (21:00)
[2020-09-18] MEDS: SODIUM CHLORIDE 0.9% 1,000 ML IV SCH ×2 (00:15→12:45)
[2020-09-18] MEDS: CEFEPIME 1,000 MG in SODIUM CHLORIDE 0.9% 100 ML IV SCH ×2 (02:55→08:21)
[2020-09-18 04:25] LABS: Basophils # 0.1 10*3/uL (0.0-0.2); Basophils % 0.7 % (0.0-0.8); Eosinophils # 0.1 10*3/uL (0.0-0.87); Eosinophils % 0.8 % (0.00-10.9); Hematocrit 25.9 VOL% (42.0-52.0); Hemoglobin 7.9 GM/DL (14.0-18.0); Immature Granulocytes % 0.5 %; Immature Granulocytes Absolute 0.04 #; Lymphocytes # 1.2 10*3/uL (1.4-4.0); Lymphocytes % 14.3 % (21.2-54.2); Mean Corpuscular HGB Conc 30.5 GM/DL (32-36); Mean Corpuscular Volume 89.9 FL (87-102); Monocytes % 12.8 % (1.7-12.7); Neutrophils % 70.9 % (38.7-73.9); Platelet Count 156 T/CUMM (130-400); Red Blood Count 2.88 MC/CUMM (3.8-5.5); Red Cell Distribution Width 15.2 % (9.3-17.3); White Blood Count 8.3 T/CUMM (4-12)
[2020-09-18 04:53] LABS: Calcium 7.9 MG/DL (8.5-10.1); Osmolality,Calculated 281.3 MOS/KG (273-304); Potassium 3.9 MMOL/L (3.5-5.1)
[2020-09-18] MEDS: PANTOPRAZOLE 40 MG TABLET PO SCH (06:20)
[2020-09-18] MEDS: CLOPIDOGREL 75 MG TABLET PO SCH (08:20)
[2020-09-18] MEDS: BISOPROLOL 5 MG TABLET PO SCH (08:20)
[2020-09-18] MEDS: ASPIRIN EC 81 MG TABLET PO SCH (08:20)
[2020-09-18] MEDS: LEFLUNOMIDE 10 MG TABLET PO SCH (08:20)
[2020-09-18] MEDS: SODIUM HYPOCHLORITE 0.25% IRRIG 473 ML BOTTLE TOP SCH (08:21)
[2020-09-18] MEDS: ACETIC ACID 0.25% IRRIGATION 1,000 ML BOTTLE IRRIG SCH (08:21)
[2020-09-18] MEDS: DOXYCYCLINE HYCLATE 100 MG CAPSULE PO SCH (08:21)
[2020-09-18] MEDS: POTASSIUM CHLORIDE 20 MEQ TABLET PO SCH (08:22)
[2020-09-18 11:46] VITALS: BP 182/78
== END 2020-09-18 14:09 | disposition home health service (06) | DRG 271 ==
LOC: N.CL 05:58 → N.SDSINP 05:58 → N.CL 06:08 → N.5E 15:40
PROVIDERS: ADMIT Internal Medicine Cardiovascular Disease; ATTEND Internal Medicine Cardiovascular Disease

== ENCOUNTER 2021-08-04 09:33 | Observation (INO) ==
[2021-08-04] MEDS ORDERED: SODIUM CHLORIDE 0.9% 1,000 ML IV PRN (10:08)
[2021-08-04 10:24] LABS: Basophils # 0.2 10*3/uL (0.0-0.2); Basophils % 1.7 % (0.0-0.8); Eosinophils # 0.5 10*3/uL (0.0-0.87); Eosinophils % 5.5 % (0.00-10.9); Hematocrit 22.3 VOL% (42.0-52.0); Hemoglobin 6.9 GM/DL (14.0-18.0); Immature Granulocytes % 1.3 %; Immature Granulocytes Absolute 0.11 #; Lymphocytes # 1.3 10*3/uL (1.4-4.0); Lymphocytes % 14.9 % (21.2-54.2); Mean Corpuscular HGB Conc 30.9 GM/DL (32-36); Mean Corpuscular Volume 92.5 FL (87-102); Mean Platelet Volume 9.2 FL (9.6-12.0); Monocytes % 12.4 % (1.7-12.7); Neutrophils % 64.2 % (38.7-73.9); Platelet Count 263 T/CUMM (130-400); Red Blood Count 2.41 MC/CUMM (3.8-5.5); Red Cell Distribution Width 15.4 % (9.3-17.3); White Blood Count 8.7 T/CUMM (4-12)
[2021-08-04 10:33] LABS: INR 1.1; PT Patient Result 12.2 SECS (10.5-12.0)
[2021-08-04 10:45] LABS: Albumin 2.8 G/DL (3.4-5.0); Bilirubin,Total 0.8 MG/DL (0.20-1.00); Calcium 8.6 MG/DL (8.5-10.1); Osmolality,Calculated 275.8 MOS/KG (273-304); Total Protein 6.5 G/DL (6.4-8.2)
[2021-08-04] MEDS ORDERED: GLUCAGON 1 MG VIAL IM PRN (12:43)
[2021-08-04] MEDS ORDERED: ONDANSETRON 4 MG/2 ML VIAL IV PRN (12:43)
[2021-08-04] MEDS ORDERED: DEXTROSE 10% 250 ML BAG IV PRN (12:50)
[2021-08-04] MEDS ORDERED: PANTOPRAZOLE 40 MG VIAL IV STA (13:03)
[2021-08-04 15:02] LABS: Bilirubin,Urine Negative (Negative); Blood, Urine Negative (Negative); Glucose,Urine (UA) Negative (Negative); Hyaline Casts,Urine 1 /LPF (0-3); Ketones,Urine Negative (Negative); Mucus,Urine Occasional /LPF (Occasional); Nitrite,Urine Negative (Negative); Protein,Urine Negative; RBC,Urine <1 /HPF (0-4); Urine Appearance CLEAR (Clear); Urine Color Yellow (Yellow); Urine Specific Gravity 1.011 (1.001-1.035); Urine Urobilinogen < 2.0 EU/DL (<2.0)
[2021-08-04 16:27] LABS: Hematocrit 24.5 VOL% (42.0-52.0); Hemoglobin 7.7 GM/DL (14.0-18.0)
[2021-08-04 22:43] LABS: Hematocrit 26.6 VOL% (42.0-52.0); Hemoglobin 8.6 GM/DL (14.0-18.0)
[2021-08-05 06:21] LABS: Basophils # 0.1 10*3/uL (0.0-0.2); Basophils % 1.4 % (0.0-0.8); Eosinophils # 0.5 10*3/uL (0.0-0.87); Eosinophils % 5.7 % (0.00-10.9); Hematocrit 28.9 VOL% (42.0-52.0); Hemoglobin 9.3 GM/DL (14.0-18.0); Immature Granulocytes % 1.2 %; Lymphocytes # 1.7 10*3/uL (1.4-4.0); Lymphocytes % 19.5 % (21.2-54.2); Mean Corpuscular HGB Conc 32.2 GM/DL (32-36); Mean Corpuscular Volume 88.4 FL (87-102); Mean Platelet Volume 9.2 FL (9.6-12.0); Monocytes % 11.4 % (1.7-12.7); Neutrophils % 60.8 % (38.7-73.9); Platelet Count 238 T/CUMM (130-400); Red Blood Count 3.27 MC/CUMM (3.8-5.5); Red Cell Distribution Width 15.5 % (9.3-17.3); White Blood Count 8.6 T/CUMM (4-12)
[2021-08-05 06:40] LABS: Albumin 2.6 G/DL (3.4-5.0); Bilirubin,Total 0.5 MG/DL (0.20-1.00); Osmolality,Calculated 270.2 MOS/KG (273-304); Potassium 4.8 MMOL/L (3.5-5.1); Total Protein 6.3 G/DL (6.4-8.2)
[2021-08-05] MEDS ORDERED: GABAPENTIN 100 MG CAPSULE PO PRN (08:51)
[2021-08-05] MEDS ORDERED: predniSONE 5 MG TABLET PO PRN (08:51)
[2021-08-05] MEDS ORDERED: PANTOPRAZOLE 40 MG TABLET PO SCH (09:00)
[2021-08-05] MEDS ORDERED: OLMESARTAN 5 MG TABLET PO SCH (09:00)
[2021-08-05] MEDS ORDERED: BISOPROLOL 5 MG TABLET PO SCH (09:00)
[2021-08-05] MEDS ORDERED: PANTOPRAZOLE 40 MG VIAL IV SCH (09:00)
[2021-08-05 12:05] VITALS: BP 115/58
[2021-08-05] MEDS ORDERED: LEFLUNOMIDE 10 MG TABLET PO SCH (21:00)
[2021-08-05] MEDS ORDERED: ROSUVASTATIN 20 MG TABLET PO SCH (21:00)
== END 2021-08-05 12:49 | disposition home or self-care (01) ==
LOC: N.ED 09:33 → N.EDINP 09:33 → N.TELEN 17:49
PROVIDERS: ADMIT Internal Medicine; ATTEND Internal Medicine